=== PATIENT | female | born 1990 | race Caucasian/White ===

== ENCOUNTER 2024-01-17 19:10 | Emergency (ER) | payer SELFPAY ==
[2024-01-17 19:14] VITALS: BP 123/69; PULSE 98; RESP 14; TEMP 37.1; O2SAT 100; BMI 25.3
[2024-01-17] MEDS: Famotidine 200 MG/20 ML MDV 20 MG in 0.9% Normal Saline (Pres. free 8 ML 300 MG IV (19:35)
[2024-01-17] MEDS: DiphenhydrAMINE 50 MG/ML Syringe IV (19:35)
--- NOTE | 2024-01-17 19:46 | EX.ED.DYSGE1 ---
HPI History of Present Illness Chief Complaint: Allergic Reaction [facility] Medical History no medical history Surgical History no surgical history Social History Smoking Status: Never smoker EXAM Physical Exam Const Vital Signs: 01/17/24 19:14 Temperature 98.8 F Temperature Source Temporal Pulse Rate 98 Respiratory Rate 14 Blood Pressure 123/69 H Blood Pressure Mean 87 Pulse Ox 100 Oxygen Delivery Method Room Air [facility] Narrative Medical decision making narrative: HISTORY OF PRESENT ILLNESS: 33-year-old female presents with concern for allergic reaction. Notes she is 24 weeks . States she stung by bees prior to arrival. No history of allergy. Notes itching. Denies trouble swallowing, drooling, difficulty breathing. Denies abdominal pain or nausea. Denies vaginal bleeding discharge or decreased movement. REVIEW OF SYSTEMS: Pertinent positives: Itching, bee stings Pertinent negatives: As per HPI PHYSICAL EXAM: Nursing triage notes reviewed, Vital signs reviewed Constitutional: please see mdm HENT: MMM, posterior oropharynx patent, no drooling, no pooling of secretions, no swelling, Eyes: Pupils equal round and reactive to light, Extraocular muscles intact Neck: No stridor, no JVD, full neck ROM, no trismus, Lungs: Clear to auscultation, No wheezing or rales. No increased work of breathing, no conversational dyspnea, no accessory muscle use, no nasal flaring. No respiratory distress noted Heart: Regular rate and rhythm, No murmurs, No rubs and No gallops, 2+ distal pulses (radial, femoral, posterior tibial) in all extremities Abdomen: Soft, there is no tenderness, rigidity, rebound or guarding, no obvious peritoneal signs, no palpable pulsatile abdominal masses, no auscultated abdominal bruit : No CVAT Extremities: No edema Neuro: No focal neurological deficits, cranial nerves II through XII intact, 5/5 strength in all extremities. Intact sensation to light touch in all extremities, 2+ reflexes bilateral patella tendons. Normal gait. No ataxia. Skin: Diffuse urticarial rash noted to face neck chest bilateral arms and lower extremities MEDICAL DECISION MAKING: Chief Complaint: Allergic reaction External records reviewed: No external records noted [facility] Narrative: Patient was hemodynamically stable, afebrile, nontoxic-appearing. Exam consistent with an allergic reaction. I considered the following differential diagnosis: Allergic reaction, anaphylaxis Given 24-week status I did not immediately give epinephrine as it is not indicated in .. I decided to give antihistamines initially given a new that they were safe in for example Pepcid. Will monitor the patient for rebound or signs of anaphylaxis at this time she is suffering from an allergic reaction. Patient was observed for approximately half hours without evidence of worsening allergy or anaphylaxis. No indication for observation.. Patient noted symptomatic improvement after Pepcid and Benadryl. She was encouraged to continue take Pepcid Benadryl or Zyrtec at home twice a day as needed for additional allergy relief. Strict return precautions were discussed. precautions were discussed. The patient and/or family, caregivers express understanding. The patient and/or family, caregivers agrees with the plan. Shared decision making: I will have a discussion with the patient and or visitors regarding risk/benefits of further testing or admission. They will be made aware of of the risk/benefits inherent in this decision they will be given the opportunity to voice understanding. Total critical care time today provided was at least 0 minutes. This excludes separately billable procedures. Critical care time (if documented) is secondary to the patient having high probability of clinically significant/life threatening deterioration in the patient's condition which required my urgent intervention. Impression: 1. Bee sting 2. Allergic reaction Dispo: Discharge home This note was generated with [employer] dictation software. It may contain incorrect words, spelling, and punctuation that were not noted in review of the chart prior to signing. Discharge Plan Triage Chief Complaint: Allergic Reaction ED Provider: Tre Webb Dx/Rx/DC Orders Primary Care Provider: Chuck Kelley Referrals: Chuck Kelley MD [Primary Care Provider] - Print Language: Pashto
[2024-01-17 20:07] VITALS: PULSE 107; RESP 23; O2SAT 100
[2024-01-17 20:15] VITALS: PULSE 96; RESP 23; O2SAT 99
[2024-01-17 20:30] VITALS: BP 113/57; PULSE 97; RESP 21; O2SAT 100
[2024-01-17 20:45] VITALS: PULSE 93; RESP 21; O2SAT 99
[2024-01-17 21:01] VITALS: BP 115/73; PULSE 93; RESP 21; TEMP 36.6; O2SAT 99
== END 2024-01-17 21:02 | disposition home or self-care (01) ==
PROVIDERS: Emergency Provider Emergency Medicine; PCP Family Medicine; Visit Provider Emergency Medicine
DX: O9A.212 Injury, poisoning and certain other consequences of external causes complicating pregnancy, second trimester (principal); T63.441A Toxic effect of venom of bees, accidental (unintentional), initial encounter; Z3A.24 24 weeks gestation of pregnancy
CPT/HCPCS: 96374; 96375; 99282; A4216; J3490